=== PATIENT | male | born 1985 | race African-American/Black ===

== ENCOUNTER 2020-10-09 01:25 | Emergency (ER) | payer SELFPAY ==
[2020-10-09] MEDS ORDERED: diphenhydrAMINE 50 MG/ML VIAL ONE (02:37)
[2020-10-09] MEDS ORDERED: Ketorolac Tromethamine 30 MG/ML VIAL ONE (02:37)
[2020-10-09] MEDS ORDERED: Metoclopramide HCl 10 MG/2 ML VIAL ONE (02:37)
== END 2020-10-09 04:35 | disposition home or self-care (01) ==
LOC: CSHERS 01:25
DX: I10 Essential (primary) hypertension (principal); E11.9 Type 2 diabetes mellitus without complications
CPT/HCPCS: 36416; 70450; 96374; 96375; J1200; J1885; J2765